=== PATIENT | male | born 1955 | race Caucasian/White ===

== ENCOUNTER 2017-12-22 01:56 | Emergency (ER) | payer OTHER ==
[~2017-12-22] VITALS: Ht 167.6 cm; Wt 132.0 kg
[2017-12-22 02:18] VITALS: BP 109/61; PULSE 93; RESP 16; TEMP 98.9; O2SAT 93
[2017-12-22] MEDS ORDERED: LEVO50TA4 PO (02:26)
[2017-12-22] MEDS ORDERED: SAW500CA (02:26)
[2017-12-22] MEDS ORDERED: D3 U5000 (02:26)
[2017-12-22] MEDS ORDERED: COLA100C5 PO (02:26)
[2017-12-22] MEDS ORDERED: ASPI-516 CHEW (02:26)
[2017-12-22] MEDS ORDERED: ATOR20TA15 PO (02:26)
[2017-12-22] MEDS ORDERED: VITA100T10 (02:26)
[2017-12-22] MEDS ORDERED: LISI2.5T3 PO (02:26)
--- NOTE | 2017-12-22 03:37 | PD ---
HPI Chief Complaint: Musculoskeletal Complaint Time Seen by Provider: 02:29 Travel History International Travel<30 days: No Contact w/Intl Traveler<30days: No Traveled to known affect area: No History of Present Illness HPI The patient is a 62 year old male who presents to the [facility] emergency department with a history of awakening from sound sleep and naproxen 3 AM with cramping in his upper medial thigh. He reports that he has had cramps in his legs in the past and can normally stretch it out, however this one was persistent. He reports that he became concerned when a family member said that it also looks swollen. He denies any prior history of DVT or PE, however he does have a history of venous stasis with venous stasis ulcer on his right calf that occurred in September 2017 and is now healed. He reports that he normally wears compression stockings in the day and takes them off at night. He denies having any chest pain, chest pressure, or shortness of breath. He denies having any recent fevers or chills, cough or congestion. He denies having any abdominal pain, vomiting, diarrhea, urinary symptoms, or neurologic symptoms. [facility] Past Medical History Narrative Medical The patient's past medical history is significant for sleep apnea, hypertension , hyperlipidemia, venous stasis changes of his lower extremities. High Cholesterol: Yes Hypertension: Yes Sleep Apnea: Yes Tetanus Vaccination: > 5 Years Influenza Vaccination: No Past Surgical History Narrative Surgical The patient's past surgical history is significant for a tonsillectomy. Tonsillectomy: Yes Social History Alcohol Use: No Tobacco Use: No Substance Use: No Allergies-Medications (Allergen,Severity, Reaction): Coded Allergies: Sulfa (Sulfonamide Antibiotics) (Verified Allergy, Mild, Itching, 12/22/17) Reported Meds & Prescriptions Reported Meds & Active Scripts Active Reported B6 Natural (Pyridoxine HCl) 100 Mg Tab Lisinopril 2.5 Mg Tab 2.5 Mg PO DAILY Aspirin 81 Mg Chew 81 Mg CHEW DAILY Levothyroxine (Levothyroxine Sodium) 50 Mcg Tab 50 Mcg PO DAILY Saw [place] 500 Mg Capsule 450 Mg Colace (Docusate Sodium) 100 Mg Capsule 100 Mg PO HS Atorvastatin (Atorvastatin Calcium) 20 Mg Tab 20 Mg PO HS D3 Ultra Strength (Cholecalciferol) 5,000 Unit Cap 5,000 Units DAILY Review of Systems Except as stated in HPI: all other systems reviewed are Neg General / Constitutional: No: Fever Eyes: No: Visual changes HENT: No: Headaches Cardiovascular: No: Chest Pain or Discomfort Respiratory: No: Shortness of Breath Gastrointestinal: No: Nausea, Vomiting, Diarrhea, Abdominal Pain Genitourinary: No: Dysuria Musculoskeletal: Positive: Myalgias, Cramping, Edema, Pain Skin: No Rash Neurologic: No: Weakness Psychiatric: No: Depression Endocrine: No: Polydipsia Hematologic/Lymphatic: No: Easy Bruising Physical Exam Narrative General: The patient is a well-developed well-nourished male in no acute distress. Head and Neck exam: Head is normocephalic atraumatic. Eyes: EOMI, pupils are equal round and reactive to light. Nose: Midline septum with pink mucous membranes Mouth: Dentition unremarkable. Moist mucus membranes. Posterior oropharynx is not erythematous. No tonsillar hypertrophy. Uvula midline. Airway patent. Neck: No palpable lymphadenopathy. No nuchal rigidity. No thyromegaly. Cardiovascular: Regular rate and rhythm without murmurs, gallops, or rubs. Lungs: Clear to auscultation bilaterally. No wheezes, rhonchi, or rales. Abdomen: Soft, without tenderness to palpation in all 4 quadrants of the abdomen. No guarding, rebound, or rigidity. Normal bowel sounds are audible. No tenderness on palpation of McBurney's point. Extremities: No clubbing, cyanosis, or edema. 2+ pulses in all 4 extremities. No calf tenderness on palpation. Negative Homans sign. No palpable cords. No open wounds. Back: No costovertebral angle tenderness to palpation. Neurologic Exam: Grossly nonfocal. Skin Exam: No rash noted. Intact skin that is warm and dry. Data Data Last Documented VS Vital Signs Date Time Temp Pulse Resp B/P (MAP) Pulse Ox O2 Delivery O2 Flow Rate FiO2 12/22/17 03:46 16 12/22/17 02:18 98.9 93 109/61 (77) 93 Orders Orders Electrocardiogram (12/22/17 03:16) Complete Blood Count With Diff (12/22/17 03:16) Comprehensive Metabolic Panel (12/22/17 03:16) Creatine Kinase (Cpk) (12/22/17 03:16) Ckmb (Isoenzyme) Profile (12/22/17 03:16) Troponin I (12/22/17 03:16) Prothrombin Time / Inr (Pt) (12/22/17 03:16) Act Partial Throm Time (Ptt) (12/22/17 03:16) Urinalysis - C+S If Indicated (12/22/17 03:16) Magnesium (Mg) (12/22/17 03:16) Chest, Single Ap (12/22/17 03:16) Iv Access Insert/Monitor (12/22/17 03:16) Ecg Monitoring (12/22/17 03:16) Oximetry (12/22/17 03:16) Us Leg Venous Doppler (12/22/17 04:06) Labs Laboratory Tests Test 12/22/17 03:45 12/22/17 04:00 White Blood Count 11.1 TH/MM3 Red Blood Count 5.12 MIL/MM3 Hemoglobin 12.4 GM/DL Hematocrit 38.7 % Mean Corpuscular Volume 75.7 FL Mean Corpuscular Hemoglobin 24.2 PG Mean Corpuscular Hemoglobin Concent 31.9 % Red Cell Distribution Width 19.0 % Platelet Count 272 TH/MM3 Mean Platelet Volume 9.3 FL Neutrophils (%) (Auto) 72.2 % Lymphocytes (%) (Auto) 11.4 % Monocytes (%) (Auto) 12.9 % Eosinophils (%) (Auto) 2.0 % Basophils (%) (Auto) 1.5 % Neutrophils # (Auto) 8.0 TH/MM3 Lymphocytes # (Auto) 1.3 TH/MM3 Monocytes # (Auto) 1.4 TH/MM3 Eosinophils # (Auto) 0.2 TH/MM3 Basophils # (Auto) 0.2 TH/MM3 CBC Comment DIFF FINAL Differential Comment Prothrombin Time 10.3 SEC Prothromb Time International Ratio 1.0 RATIO Activated Partial Thromboplast Time 23.1 SEC Blood Urea Nitrogen 25 MG/DL Creatinine 1.13 MG/DL Random Glucose 104 MG/DL Total Protein 7.4 GM/DL Albumin 3.6 GM/DL Calcium Level 8.8 MG/DL Magnesium Level 2.5 MG/DL Alkaline Phosphatase 79 U/L Aspartate Amino Transf (AST/SGOT) 15 U/L Alanine Aminotransferase (ALT/SGPT) 23 U/L Total Bilirubin 0.2 MG/DL Sodium Level 139 MEQ/L Potassium Level 4.4 MEQ/L Chloride Level 104 MEQ/L Carbon Dioxide Level 30.2 MEQ/L Anion Gap 5 MEQ/L Estimat Glomerular Filtration Rate 66 ML/MIN Total Creatine Kinase 74 U/L Troponin I LESS THAN 0.02 NG/ML Urine Color YELLOW Urine Turbidity CLEAR Urine pH 5.5 Urine Specific [place] 1.014 Urine Protein NEG mg/dL Urine Glucose (UA) NEG mg/dL Urine Ketones NEG mg/dL Urine Occult Blood NEG Urine Nitrite NEG Urine Bilirubin NEG Urine Urobilinogen LESS THAN 2.0 MG/DL Urine Leukocyte Esterase NEG Urine RBC LESS THAN 1 /hpf Urine WBC LESS THAN 1 /hpf Urine Hyaline Casts 1 /lpf Microscopic Urinalysis Comment CULT NOT INDICATED MDM Medical Decision Making Medical Screen Exam Complete: Yes Emergency Medical Condition: Yes Medical Record Reviewed: Yes Interpretation(s) Last Impressions Lower Extremity Ultrasound 12/22/17405 Signed Impressions: Service Date/Time: Friday, December 22, 2017 04:43 - CONCLUSION: No DVT is identified within the right lower extremity. Omkar Peralta MD Chest X-Ray 12/22/17315 Signed Impressions: Service Date/Time: Friday, December 22, 2017 03:44 - CONCLUSION: Underinflation with mild atelectasis at the lung bases. Otherwise, no acute finding is visualized. Omkar Peralta MD Differential Diagnosis Electrolyte derangements causing cramping, versus DVT, versus simple muscle spasm Narrative Course During the course of the patient's emergency department visit, the patient's history, examination, and differential diagnosis were reviewed with the patient. The patient was placed on a alterations tailor with oximetry and frequent blood pressure monitoring. The patient had IV access obtained and blood work sent for analysis. The patient's laboratory studies were reviewed and remarkable for a white count of 11.1, hemoglobin 12.4, platelets 272 with 72.2 neutrophils, monocytes 12.9, CMP is remarkable for BUN of 25, GFR of 66, CPK 74, troponin I less than 0.02, PT 10.3, PTT 23.1. Urinalysis unremarkable Radiology studies were reviewed and remarkable for a chest x-ray that shows underinflation with mild atelectasis, no other acute findings. An ultrasound of the right lower extremity that shows no acute abnormality. No evidence of DVT. The patient is resting comfortably and feels better, is alert and in no distress. The patient's results and examination findings were discussed with the patient. The repeat examination is unremarkable and benign. The history, exam, diagnostic testing, and current condition do not suggest any significant pathology to warrant further testing, continued ED treatment, admission, or surgical evaluation at this point. The vital signs have been stable. The patient does not have uncontrollable pain, intractable vomiting, or other significant symptoms. The patient's condition is stable and appropriate for discharge. The patient will pursue further outpatient evaluation with a primary care physician or other designated or consulting physician as indicated in the discharge instructions. The patient expressed understanding and was agreeable with this plan. Diagnosis Primary Impression: Leg cramp Referrals: Primary Care Physician Patient Instructions: General Instructions, Leg Cramps (ED) Med/Other Pt SpecificInfo: No Change to Meds Disposition: 01 DISCHARGE HOME Condition: Stable Caron Ashley MD Dec 22, 2017 03:37
[2017-12-22 03:46] VITALS: RESP 16
[2017-12-22 04:03] LABS: BASOPHIL # 0.2 TH/MM3 (0-0.2); BASOPHIL % 1.5 % (0.0-2.0); EOSINOPHIL # 0.2 TH/MM3 (0-0.4); HEMATOCRIT 38.7 % (39.0-51.0); HEMOGLOBIN 12.4 GM/DL (13.0-17.0); LYMPH % 11.4 % (9.0-44.0); LYMPHOCYTE # 1.3 TH/MM3 (1.0-4.8); MEAN CELL VOLUME 75.7 FL (80.0-100.0); MEAN CORPUSCULAR HEMOGLOBIN 24.2 PG (27.0-34.0); MEAN CORPUSCULAR HGB CONC 31.9 % (32.0-36.0); MEAN PLATELET VOLUME 9.3 FL (7.0-11.0); MONO % 12.9 % (0.0-8.0); MONOCYTE # 1.4 TH/MM3 (0-0.9); NEUT % 72.2 % (16.0-70.0); PLATELET COUNT 272 TH/MM3 (150-450); RED BLOOD COUNT 5.12 MIL/MM3 (4.50-5.90); WHITE BLOOD COUNT 11.1 TH/MM3 (4.0-11.0)
[2017-12-22 04:10] LABS: BILIRUBIN, URINE NEG (NEG); BLOOD, URINE NEG (NEG); GLUCOSE,URINE NEG (NEG); HYALINE CAST, URINE 1 /lpf (RARE); KETONE, URINE NEG (NEG); NITRITE,URINE NEG (NEG); PH, URINE 5.5 (5.0-8.5); URINE COLOR YELLOW (YELLW/STRAW); URINE LEUKOCYTE ESTERASE NEG (NEG)
[2017-12-22 04:14] LABS: PROTHROMBIN TIME - PATIENT 10.3 SEC (9.8-11.6)
--- NOTE | 2017-12-22 04:18 | RADRPT ---
EXAM DATE/TIME: 12/22/2017 03:44 [facility] COMPARISON: No previous studies available for comparison. INDICATIONS : Cough. MEDICAL HISTORY : SURGICAL HISTORY : None. ENCOUNTER: Initial ACUITY: 4 - 6 days PAIN SCORE: 0/10 LOCATION: Bilateral chest FINDINGS: Underinflated AP view of the chest demonstrates a normal-sized cardiac silhouette. There is mild atel ectasis at the lung bases. No effusion, consolidation, or pneumothorax identified. The bones and soft tissues demonstrate no acute finding. CONCLUSION: Underinflation with mild atelectasis at the lung bases. Otherwise, no acute finding is visualized. Omkar Peralta MD on December 22, 2017 at 4:16 Board Certified Radiologist. This report was verified electronically.
[2017-12-22 04:22] LABS: ALBUMIN 3.6 GM/DL (3.4-5.0); ALT (GPT) 23 U/L (12-78); AST (GOT) 15 U/L (15-37); BICARBONATE 30.2 MEQ/L (21.0-32.0); BLOOD UREA NITROGEN 25 MG/DL (7-18); CALCIUM 8.8 MG/DL (8.5-10.1); CHLORIDE 104 MEQ/L (98-107); CREATININE 1.13 MG/DL (0.60-1.30); GLOMERULAR FILTRATION RATE 66 ML/MIN (>89); GLUCOSE,RANDOM 104 MG/DL (74-106); MAGNESIUM 2.5 MG/DL (1.5-2.5); SODIUM (NA) 139 MEQ/L (136-145)
[2017-12-22 04:26] LABS: ALKALINE PHOSPHATASE 79 U/L (45-117); TOTAL BILIRUBIN ADULT 0.2 MG/DL (0.2-1.0); TOTAL PROTEIN 7.4 GM/DL (6.4-8.2); TROPONIN I LESS THAN 0.02 NG/ML (0.02-0.05)
--- NOTE | 2017-12-22 05:27 | RADRPT ---
EXAM DATE/TIME: 12/22/2017 04:43 [facility] COMPARISON: No previous studies available for comparison. INDICATIONS : Right leg swelling. MEDICAL HISTORY : Hypercholesterolemia. Hypertension. Sleep apnea. SURGICAL HISTORY : Tonsillectomy. ENCOUNTER: Initial ACUITY: 2 day PAIN SCORE: 3/10 LOCATION: Right leg. TECHNIQUE: Venous ultrasound of the leg was performed from the inguinal ligament to the proximal calf. Real-carla e, color Doppler and spectral tracing, compression and augmentation techniques were used. FINDINGS: There is normal compressibility of the deep venous system from the inguinal region to the proximal ca lf. No echogenic clot is seen in the lumen of the common femoral, femoral, popliteal, and posterior tibial veins. There is a normal response of the venous system to proximal and distal augmentation an d respiration. CONCLUSION: No DVT is identified within the right lower extremity. Omkar Peralta MD on December 22, 2017 at 5:25 Board Certified Radiologist. This report was verified electronically.
--- NOTE | 2017-12-22 13:35 | EKG ---
Date Performed: 12/22/2017 Time Performed: 03:30:01 PTAGE: 62 years EKG: Sinus rhythm LOW QRS VOLTAGE IN PRECORDIAL LEADS BORDERLINE ECG NO PREVIOUS TRACING DOCTOR: Pastor Gutiérrez Interpretating Date/Time 12/22/2017 13:33:39
== END 2017-12-22 06:06 | disposition home or self-care (01) ==
LOC: NEPC 01:56
DX: R25.2 Cramp and spasm (principal); I10 Essential (primary) hypertension; E78.00 Pure hypercholesterolemia, unspecified; E78.5 Hyperlipidemia, unspecified; R94.31 Abnormal electrocardiogram [ECG] [EKG]; Z88.2 Allergy status to sulfonamides; Z79.899 Other long term (current) drug therapy; Z79.82 Long term (current) use of aspirin
CPT/HCPCS: 71045; 80053; 81001; 82550; 83735; 84484; 85025; 85610; 85730; 93005; 93971; 99285